=== PATIENT | female | born 1960 | race Caucasian/White ===

== ENCOUNTER → 2016-07-04 | Outpatient (CLI) | payer OTHER ==
[~2016-07-04] MED LIST: ALEVE220 MG PO; ATROVENT I0.5 MG/2.5 INH; CLARITIN10 MG PO; FLONASE 50 MCG/16 GM NOSE; FLORASTOR250 MG PO; MUCINEX DM ER1 EAC1 PO; NICOTINE PATCH1 EAC1 TOP; PROVENTIL OR V6.7 GM INH; REGLAN5 MG PO; SPIRIVA HANDIHA1 KIT INH; SYMBICORT 16010.2 GM INH; VOLTAREN 1% GE100 GM TOP
== END | disposition disaster alternative care site (69) ==
LOC: GRAD 11:49
DX: K51.00 Ulcerative (chronic) pancolitis without complications (principal); K31.89 Other diseases of stomach and duodenum; K63.89 Other specified diseases of intestine; E27.8 Other specified disorders of adrenal gland; R10.9 Unspecified abdominal pain
CPT/HCPCS: Q9967

== ENCOUNTER → 2016-07-29 | Outpatient (CLI) | payer OTHER | END | disposition disaster alternative care site (69) | LOC: GRAD 10:48 | DX: K31.89 Other diseases of stomach and duodenum (principal); R93.3 Abnormal findings on diagnostic imaging of other parts of digestive tract ==

== ENCOUNTER → 2016-08-26 | Outpatient (CLI) | payer OTHER ==
[2016-08-26 09:19] LABS: ALBUMIN 3.7 gm/dL (3.5-5.0); ALK PHOS 82 IU/L (33-138); ALT 23 IU/L (12-78); ANION GAP 12.2 (10.0-19.0); AST 14 IU/L (10-40); BLOOD UREA NITROGEN 11 mg/dL (6-24); CALCIUM 8.7 mg/dL (8.5-10.5); CHLORIDE 111 mMol/L (96-110); CO2 24 mMol/L (22-32); CREATININE 0.7 mg/dL (0.5-1.1); ESTIMATED GFR (MDRD EQUATION) > 60; POTASSIUM 4.2 mMol/L (3.7-5.1); SODIUM 143 mMol/L (135-145); TOTAL BILIRUBIN 0.4 mg/dL (0.0-1.5)
== END | disposition disaster alternative care site (69) ==
LOC: GLAB 08:40
PROVIDERS: Internal Medicine Endocrinology, Diabetes & Metabolism
DX: E27.8 Other specified disorders of adrenal gland (principal)

== ENCOUNTER 2016-11-23 21:21 | Emergency (ER) | payer OTHER ==
--- NOTE | ~2016-11-23 | ER ---
PATIENT'S NAME: LUIS ARMANDO [facility] AGE: 56 Y [address] ROOM: [place] [id number] LOCATION: [facility] ADMIT DATE: 11/23/2016 ER/Outpatient Report DISCHARGE DATE: 11/23/2016 FAMILY PHYSICIAN: Martine Cervantes MD ATTENDING PHYSICIAN: Maurisio Ryan Time of Arrival: 2121 hours Time Seen: 2145 hours CHIEF COMPLAINT: This is a 56-year-old female with severe asthma. She is in with complaint of shortness of breath. HISTORY OF PRESENT ILLNESS: She reports that she has had a cough that has been productive and she has been more short of breath than usual for the past 5-7 days. She was seen by her regular doctor 2 days ago, was given IM Rocephin, and started on oral steroids and she states she has not improved. PAST MEDICAL HISTORY: Significant for COPD and asthma. CURRENT MEDICATIONS: See list. REVIEW OF SYSTEMS: Otherwise negative. SOCIAL HISTORY: She is a 9-ehpa-ozv-day smoker. PHYSICAL EXAMINATION: GENERAL: A thin white female, in mild respiratory distress. SKIN: Warm and dry. Color is normal. She had increased work of breathing. Oxygen saturations were 95% on room air. HEAD, EARS, EYES, NOSE, AND THROAT: Normal. NECK: Supple. HEART: Had a regular rate and rhythm without murmur. LUNGS: She had scattered inspiratory and expiratory wheezing with good air movement bilaterally. ABDOMEN: Soft and nontender. EXTREMITIES: Normal. NEUROLOGIC: Normal. LABORATORY DATA AND X-RAYS: Chest x-ray is negative by my interpretation. PATIENT'S NAME: MURRAY DURÁNEN [facility] AGE: 56 Y [address] ROOM: [place] [id number] LOCATION: [facility] ADMIT DATE: 11/23/2016 ER/Outpatient Report DISCHARGE DATE: 11/23/2016 FAMILY PHYSICIAN: Martine Cervantes MD ATTENDING PHYSICIAN: Maurisio Ryan EMERGENCY DEPARTMENT COURSE: She was given 2 albuterol breathing treatments with improvement in the emergency department. ASSESSMENT: 1. Acute exacerbation of asthma. 2. Bronchitis. PLAN: Continue her current medications. Follow up with her regular doctor as needed. MAURISIO RYAN MD JDB/modl /[id number] d: 11/24/16 0648 t: 11/27/16 0550, OUTPATIENT REPORT
== END 2016-11-23 23:19 | disposition disaster alternative care site (69) ==
LOC: GMED 21:21
DX: J45.901 Unspecified asthma with (acute) exacerbation (principal); F17.210 Nicotine dependence, cigarettes, uncomplicated; Z90.710 Acquired absence of both cervix and uterus